=== PATIENT | female | born 1985 | race Caucasian/White ===

== ENCOUNTER 2022-03-27 11:30 | Emergency (ER) | payer OTHER ==
[~2022-03-27 11:30] MED LIST: EXCEDRIN MIGRA1 EACH PO; ORTHO TRI-CYCL1 EACH PO; ZOLOFT100 MG PO
[2022-03-27 12:23] LABS: BASOPHIL 0.2 % (0-2); EOSINOPHIL 0.1 % (0-5); HCT 42.2 % (37.0-47.0); HGB 14.1 g/dl (12.5-16.0); LYMPHOCYTE 22.9 % (15-48); MCH 28.5 pg (25.0-31.0); MCHC 33.4 g/dL (32.0-36.0); MCV 85.3 fL (78.0-100.0); MONOCYTE 14.1 % (0-12); MPV 10.8 fL (6.0-9.5); NEUTROPHIL 62.5 % (41-80); NRBC 0; PLT 261 K/uL (150-400); RBC 4.95 M/uL (4.20-5.40); RDW 12.4 % (11.5-14.0); WBC 8.9 K/uL (4.0-10.5)
[2022-03-27 12:32] LABS: ALBUMIN 3.7 g/dL (3.4-5.0); BILIRUBIN - TOTAL 0.3 mg/dL (0.2-1.0); BUN/CREAT RATIO (CALC) 9.7 RATIO; CREATININE 0.72 mg/dL (0.51-0.95); POTASSIUM 3.1 mmol/L (3.5-5.1); TOTAL PROTEIN 7.7 g/dL (6.4-8.2)
[2022-03-27] MEDS ORDERED: K-TAB ER20 MEQ PO (14:35)
[2022-03-27] MEDS ORDERED: BENTYL10 MG PO (14:35)
[2022-03-27] MEDS ORDERED: ONDANSETRON HCL4 MG PO (14:35)
[2022-03-27 14:43] LABS: BILIRUBIN NEGATIVE (NEGATIVE); BLOOD TRACE-INTACT Ery/uL (NEGATIVE); CLARITY CLEAR (CLEAR); COLOR YELLOW (YELLOW); GLUCOSE (U) NORMAL (NORMAL); LEUKOCYTES NEGATIVE Leu/uL (NEGATIVE); NITRITE NEGATIVE (NEGATIVE); PROTEIN NEGATIVE (NEGATIVE); SPECIFIC GRAVITY <=1.005 (1.001-1.030)
[2022-03-27 14:55] LABS: BACTERIA TRACE; URINARY WBC RARE
== END 2022-03-27 15:31 | disposition home or self-care (01) ==
LOC: FER 11:30
PROVIDERS: Nurse Practitioner Family
DX: K52.9 Noninfective gastroenteritis and colitis, unspecified (principal); E87.6 Hypokalemia; Z88.6 Allergy status to analgesic agent; Z28.310 Unvaccinated for COVID-19
CPT/HCPCS: 36415; 80053; 81001; 82150; 83605; 83690; 85025; J1885; J2405; J7030; Q9967